=== PATIENT | female | born 1960 | race Caucasian/White ===

== ENCOUNTER 2023-06-21 17:23 | Emergency (ER) | payer OTHER ==
[~2023-06-21] VITALS: Ht 160 cm; Wt 72.0 kg
[2023-06-21 17:30] VITALS: O2SAT 98
[2023-06-21] MEDS: ASPIRIN 81MG TABLET PO ONE (17:41)
[2023-06-21 17:58] LABS: BASOPHILS % 1.4 % (0.0-2.0); DIFFERENTIAL COMMENT 0; EOSINOPHILS % 4.7 % (0.0-5.0); HEMATOCRIT. 26.4 % (36.0-48.0); HEMOGLOBIN. 8.2 g/dL (12.0-16.0); LYMPHOCYTES % 15.6 % (20.0-50.0); MEAN CORPUSCULAR HGB CONC 31.1 g/dL (31.0-37.0); MEAN CORPUSCULAR VOLUME 106.2 fL (81.0-99.0); MEAN PLATELET VOLUME 7.3 fl (7.4-10.4); MONOCYTES % 6.1 % (2.0-8.0); NEUTROPHILS % 72.2 % (40.0-76.0); PLATELET 270 x1000/uL (130-400); RED BLOOD CELL COUNT 2.48 mill/uL (4.2-5.4); RED CELL DISTRIBUTION WIDTH 15.2 % (11.6-14.6); WHITE BLOOD COUNT 2.3 x1000/uL (4.5-11.0)
[2023-06-21 18:05] LABS: CHLORIDE 114 mEq/L (98-107); INDEX HEMOLYSI 1 (1-3); INDEX ICTERIC 1 (1-4); INDEX LIPEMIC 1 (1-3); POTASSIUM 3.9 mEq/L (3.5-5.1); SODIUM 141 mEq/L (136-145)
[2023-06-21 18:13] LABS: ALANINE AMINOTRANSFERASE 40 IU/L (13-61); ASPARTATE AMINOTRANSFERASE 31 IU/L (15-37); BILIRUBIN TOTAL 0.7 mg/dL (0.1-1.0); CALCIUM 8.4 mg/dL (8.5-10.1); CARBON DIOXIDE 23 mEq/L (21-32); CREATININE 1.4 mg/dL (0.6-1.3); GLUCOSE 104 mg/dL (70-105); PROTEIN TOTAL 7.1 g/dL (6.0-8.3); UREA NITROGEN BLOOD 17 mg/dL (7-21)
[2023-06-21 18:14] LABS: NT PRO B-TYPE NATRIURETIC PEP 3989 pg/mL (5-125); TROPONIN I HIGH SENSITIVITY 7 ng/L (<54)
[2023-06-21 20:28] LABS: TROPONIN I HIGH SENSITIVITY 8 ng/L (<54)
[2023-06-21] MEDS ORDERED: FUROSEMIDE 40MG/4ML VIAL IVP ONE (22:45)
[2023-06-21] MEDS ORDERED: ONDANSETRON HCL 4MG/2ML INJ IV ONE (22:45)
[2023-06-21] MEDS ORDERED: MORPHINE SULFATE 2 MG/ML CPJ (NOT FOR IM USE) IV ONE (22:45)
[2023-06-22 02:59] VITALS: BP 155/86; PULSE 79; RESP 16; TEMP 97.3
== END 2023-06-22 03:34 | disposition home or self-care (01) ==
LOC: ER 17:23
DX: I24.9 Acute ischemic heart disease, unspecified (principal); F32.9 Major depressive disorder, single episode, unspecified; Z95.0 Presence of cardiac pacemaker; Z98.890 Other specified postprocedural states; Z88.0 Allergy status to penicillin; Z88.2 Allergy status to sulfonamides
CPT/HCPCS: 80053; 83880; 85025; 84484; 36415; 71045; 93005; 99285; Z7610; J1940; J2405; J2270